=== PATIENT | female | born 1950 | race Caucasian/White ===

== ENCOUNTER 2017-04-16 13:25 | Emergency (ER) | payer OTHER ==
--- NOTE | 2017-04-16 14:44 | ED ORDER SUMMARY ---
..... Patient: CHAPIS GUZMAN OrderSheet [facility] VisitID: [id number] [address] [place] [address] 66y, F Registration Date/Time: 04/16/2017 ORDER SHEET Weight: 72.5 kg (stated) Allergies: Cashews, Benazepril, Codeine GENERAL ORDERS: Pulse oximeter (13:33 04/16/2017 EKoroleva P.A.-C) (13:36 LSullivan R.N.) Vitals (14:37 04/16/2017 EKoroleva P.A.-C) (14:42 omanelli R.N.) MEDICATION ORDERS: DuoNeb Neb Tx 1 unit dose (NOW) (13:33 04/16/2017 EKoroleva P.A.-C) (13:41 KEpting) IV FLUIDS: Epinephrine IV 0.1 mg (HIGH ALERT MEDICATION, NOW) (13:29 04/16/2017 EKoroleva P.A.-C) (13:33 JSimbeck R.N.) Solu-MEDROL IV 125 mg (NOW) (13:29 04/16/2017 EKoroleva P.A.-C) (13:34 JSimbeck R.N.) IV NS : initial bolus 1000 mL (1000 mL/hr), then 1000 mL/hr for X1 (NOW); Ken (13:29 04/16/2017 EKoroleva P.A.-C) (13:45 JSimbeck R.N.) Zofran IV 4 mg (NOW) (13:29 04/16/2017 EKoroleva P.A.-C) (13:58 JSimbeck R.N.) Benadryl IV 50 mg (NOW) (13:29 04/16/2017 EKoroleva P.A.-C) (13:44 JSimbeck R.N.) Pepcid IV 40 mg/50mL (NOW) (13:33 04/16/2017 EKoroleva P.A.-C) (13:45 JSimbeck R.N.) ORDER SHEET NOTES: [Electronically signed by Nanette PickettA.-C (16:13 04/16/2017)] [Electronically signed by Kasie Xie R.N. (16:18 04/16/2017)] [Electronically locked/signed by Kasie Xie R.N. (16:18 04/16/2017)]
--- NOTE | 2017-04-16 14:44 | ED CLINICAL REPORT ---
Clinical Report - Physicians/Mid Levels [facility] [address] [place] [address] 04/16/2017 13:27 Patient: CHAPIS GUZMAN Time Seen: 13:34 Daniel 14 2016. Arrived- By private vehicle. Historian- patient. HISTORY OF PRESENT ILLNESS Chief Complaint: ALLERGIC REACTION, SKIN RASH, ITCHING and "HIVES". FACIAL SWELLING and THROAT SWELLING. This started just prior to arrival 10 minutes and is still present. (patient was eating leftover food, not chosen some burger, and then had a Kiwi, when she started her symptoms of not feeling well, pruritic sensations to her body, as well as a sore throat. Patient walked to the emergency department with a coworker. Denies prior history of similar allergies to kiwis, however she has not had one in a very long time, previous allergic reactions to cashew No other new medications or changes or exposures known to patient. Denies recent illness.). REVIEW OF SYSTEMS No eye problems, sore throat, chills, joint pain or weakness. No numbness, abdominal pain, vomiting or urinary frequency. She has had a cough. All systems otherwise negative, except as recorded above. SOCIAL HISTORY Alcohol use; consumes wine. ADDITIONAL NOTES The nursing notes have been reviewed. PHYSICAL EXAM Vital Signs: 04/16/2017 13:20 BP: 149/71. HR: 77. RR: 22. O2 saturation: 100%. Pain level now: 0/10. Eyes: Pupils equal, round and reactive to light. ENT: Ears normal. Pharynx normal. Voice normal. Neck: Neck supple. No lymphadenopathy. CVS: Normal heart rate and rhythm. Heart sounds normal. Respiratory: No respiratory distress. Breath sounds normal. No accessory muscle use or rales. Abdomen: Nontender. Skin: Skin warm. Skin: Normal skin color. Skin rash (pink fine swelling at torso/ ue). Neuro: Oriented X 3. PROGRESS AND PROCEDURES Course of Care: Patient with good O2 sat here, rash improving. Patient needs to have a hoarse voice. Lungs clear. No further workup. patient with no new medications, on the recent exposure was a cystic new daily. Patient given EpiPen for home. Patient stable. No new shortness of breath. 04/16/2017 14:39 BP: 137/64. HR: 78. RR: 16. O2 saturation: 97%. Temp: 98.1 F. Patient is stable. Symptoms better. Patient/family counseled. Disposition: Discharged. CLINICAL IMPRESSION Allergic reaction secondary to food. INSTRUCTIONS (avoid KIWIs). Warnings: Further evaluation is necessary. Prescription Medications: EpiPen Auto-Injector 0.3mg / unit: inject 1 unit dose as directed as needed for allergic reaction. Dispense one (1) two-mohamud. No refills. Substitution is permissible. Follow-up: Follow up with your doctor in five days as needed. (Electronically signed by Nanette Pickett P.A.-C 04/16/2017 16:13)
--- NOTE | 2017-04-16 14:44 | ED ORDER SUMMARY ---
..... Patient: CHAPIS GUZMAN OrderSheet [facility] VisitID: [id number] [address] [place] [address] 66y, F Registration Date/Time: 04/16/2017 ORDER SHEET Weight: 72.5 kg (stated) Allergies: Cashews, Benazepril, Codeine GENERAL ORDERS: Pulse oximeter (13:33 04/16/2017 EKoroleva P.A.-C) (13:36 LSullivan R.N.) Vitals (14:37 04/16/2017 EKoroleva P.A.-C) (14:42 omanelli R.N.) MEDICATION ORDERS: DuoNeb Neb Tx 1 unit dose (NOW) (13:33 04/16/2017 EKoroleva P.A.-C) (13:41 KEpting) IV FLUIDS: Epinephrine IV 0.1 mg (HIGH ALERT MEDICATION, NOW) (13:29 04/16/2017 EKoroleva P.A.-C) (13:33 JSimbeck R.N.) Solu-MEDROL IV 125 mg (NOW) (13:29 04/16/2017 EKoroleva P.A.-C) (13:34 JSimbeck R.N.) IV NS : initial bolus 1000 mL (1000 mL/hr), then 1000 mL/hr for X1 (NOW); Ken (13:29 04/16/2017 EKoroleva P.A.-C) (13:45 JSimbeck R.N.) Zofran IV 4 mg (NOW) (13:29 04/16/2017 EKoroleva P.A.-C) (13:58 JSimbeck R.N.) Benadryl IV 50 mg (NOW) (13:29 04/16/2017 EKoroleva P.A.-C) (13:44 JSimbeck R.N.) Pepcid IV 40 mg/50mL (NOW) (13:33 04/16/2017 EKoroleva P.A.-C) (13:45 JSimbeck R.N.) ORDER SHEET NOTES: [Electronically signed by Nanette PickettA.-C (16:13 04/16/2017)] [Electronically signed by Kasie Xie R.N. (16:18 04/16/2017)] [Electronically locked/signed by Kasie Xie R.N. (16:18 04/16/2017)]
--- NOTE | 2017-04-16 14:44 | ED CLINICAL REPORT ---
Clinical Report - Physicians/Mid Levels [facility] [address] [place] [address] 04/16/2017 13:27 Patient: CHAPIS GUZMAN Time Seen: 13:34 Daniel 14 2016. Arrived- By private vehicle. Historian- patient. HISTORY OF PRESENT ILLNESS Chief Complaint: ALLERGIC REACTION, SKIN RASH, ITCHING and "HIVES". FACIAL SWELLING and THROAT SWELLING. This started just prior to arrival 10 minutes and is still present. (patient was eating leftover food, not chosen some burger, and then had a Kiwi, when she started her symptoms of not feeling well, pruritic sensations to her body, as well as a sore throat. Patient walked to the emergency department with a coworker. Denies prior history of similar allergies to kiwis, however she has not had one in a very long time, previous allergic reactions to cashew No other new medications or changes or exposures known to patient. Denies recent illness.). REVIEW OF SYSTEMS No eye problems, sore throat, chills, joint pain or weakness. No numbness, abdominal pain, vomiting or urinary frequency. She has had a cough. All systems otherwise negative, except as recorded above. SOCIAL HISTORY Alcohol use; consumes wine. ADDITIONAL NOTES The nursing notes have been reviewed. PHYSICAL EXAM Vital Signs: 04/16/2017 13:20 BP: 149/71. HR: 77. RR: 22. O2 saturation: 100%. Pain level now: 0/10. Eyes: Pupils equal, round and reactive to light. ENT: Ears normal. Pharynx normal. Voice normal. Neck: Neck supple. No lymphadenopathy. CVS: Normal heart rate and rhythm. Heart sounds normal. Respiratory: No respiratory distress. Breath sounds normal. No accessory muscle use or rales. Abdomen: Nontender. Skin: Skin warm. Skin: Normal skin color. Skin rash (pink fine swelling at torso/ ue). Neuro: Oriented X 3. PROGRESS AND PROCEDURES Course of Care: Patient with good O2 sat here, rash improving. Patient needs to have a hoarse voice. Lungs clear. No further workup. patient with no new medications, on the recent exposure was a cystic new daily. Patient given EpiPen for home. Patient stable. No new shortness of breath. 04/16/2017 14:39 BP: 137/64. HR: 78. RR: 16. O2 saturation: 97%. Temp: 98.1 F. Patient is stable. Symptoms better. Patient/family counseled. Disposition: Discharged. CLINICAL IMPRESSION Allergic reaction secondary to food. INSTRUCTIONS (avoid KIWIs). Warnings: Further evaluation is necessary. Prescription Medications: EpiPen Auto-Injector 0.3mg / unit: inject 1 unit dose as directed as needed for allergic reaction. Dispense one (1) two-mohamud. No refills. Substitution is permissible. Follow-up: Follow up with your doctor in five days as needed. (Electronically signed by Nanette Pickett P.A.-C 04/16/2017 16:13)
--- NOTE | 2017-04-16 14:44 | ED NURSING NOTES ---
Clinical Report - Nurses [facility] [address] [place] [address] 04/16/2017 13:27 Patient: CHAPIS GUZMAN TRIAGE Triage time 1320. Acuity: LEVEL 2. Chief Complaint: ALLERGIC REACTION and DIFFICULTY BREATHING . lost her voice. Alert. --13:36 Kasie Xie R.N. 13:20 04/16/17. BP: 149/71. HR: 77. RR: 22. O2 saturation: 100%. Pain level now: 0/10. Additional comments: on neb tx. --13:36 Kasie Xie R.N. Weight: 72.5 kg stated. Height/Length: 62 inches Per Patient. BMI: 29.3. --13:29 Kasie Xie R.N. Medications Flonase 50 mcg, 2 sprays daily. --13:37 Kasie Xie R.N. NIFEdipine ER Oral 90 mg, daily. --13:37 Kasie Xie R.N. Omeprazole Oral 20 mg, daily. --13:38 Kasie Xie R.N. Simvastatin Oral 40 mg, at bedtime. --13:38 Kasie Xie R.N. Spironolactone Oral with HCTZ 25mg/25mg, daily. --13:39 Kasie Xie R.N. Potassium Chloride ER Oral (Tablet Extended Release 20 meq) 30 meq, daily. --13:39 Kasie Xie R.N. Propranool 20 mg BID. --13:41 Kasie Xie R.N. Calcium Carbonate-Vit D-Min Oral. --13:42 Kasie Xie R.N. Aspirin Oral (Tablet 325 mg) 1 tablet, daily. --13:42 Kasie Xie R.N. Vitamin c. --13:43 Kasie Xie R.N. Allergies Cashews. --13:32 Kasie Xie R.N. Benazepril. --13:32 Kasie Xie R.N. Codeine. --13:32 Kasie Xie R.N. History Arrived by private vehicle. Historian: patient. Primary physician ([facility] at [facility]). ( Pt consumed kiwi and nachos, brought from home, and then couldn't talk). This started just prior to arrival. Treatment BENCH WORKER APPRENTICE: None. SOCIAL HX: Smoker- current status unknown. Alcohol use; consumes wine occasionally. No drug use. FALL RISK ASSESSMENT: Fall risk assessment completed. No fall risk identified. --13:36 Kasie Xie R.N. PROBLEMS: Hypertension. Brain aneurysm with stent. --13:34 Kasie Xie R.N. ADDITIONAL SURGERIES: Brain surgery. Foot surgery. Shoulder Surgery. --13:34 Kasie Xie R.N. Interventions ID band on patient. To room. --13:36 Kasie Xie R.N. PHYSICAL ASSESSMENT 13:20. GENERAL / NEURO / PSYCH: Appears anxious and in distress. (unable to speak sentences, can speak 1 or 2 words). --13:44 Kasie iXe R.N. NURSING PROGRESS NOTES 13:27 04/16/2017 Site #1 started via IV in the right antecubital space with an 20g angiocath, with aseptic technique and good blood return; one attempt. Blood drawn: rainbow set. Labeled in the presence of the patient and sent to the lab (by EDITH Ferro). --13:33 Gavin Prater R.N. 13:28 04/16/2017 Epinephrine (EPINEPHrine HCl) IVP 0.1 mg given over 1 minute(s) via site #1. Allergies verified and confirmed 5 rights. IV patency established. IV site checked: no pain, redness, or swelling. IV flushed thoroughly pre- and post-medication administration. IVP given by RN. --13:33 Gavin Prater R.N. 13:28 04/16/2017 SOLU-MEDROL (MethylPREDNISolone Sodium Succ) IVP 125 mg given over 2 minute(s) via site #1. Allergies verified and confirmed 5 rights. IV patency established. IV site checked: no pain, redness, or swelling. IV flushed thoroughly pre- and post-medication administration. IVP given by RN. --13:34 Gavin Prater R.N. 13:40 04/16/2017 Benadryl (DiphenhydrAMINE HCl) IVP 50 mg given over 2 minute(s) via site #1. Allergies verified, confirmed 5 rights and sedative warning given to the patient. IV patency established. IV site checked: no pain, redness, or swelling. IV flushed thoroughly pre- and post-medication administration. IVP given by RN. --13:44 Gavin Prater R.N. 13:40 04/16/2017 Started bag #1 1000 mL IV Fluids IV NS (Saline); bolus of 1000 mL over 1 minute(s) via site #1 via IV pump. Allergies verified and confirmed 5 rights. IV patency established. IV site checked: no pain, redness, or swelling. IV flushed thoroughly pre- and post-medication administration. --13:45 Gavin Prater R.N. 13:41 04/16/2017 Duoneb (Ipratropium-Albuterol) Neb TX 1 unit dose given. --13:41 Lisa Beckwith 13:21. Patient identifiers checked. Call light placed in reach. Bed placed in lowest position. Patient ready for evaluation- chart flagged. --13:44 Kasie Xie R.N. 13:22. classroom monitor, pulse oximeter and NIBP monitor placed on patient; monitor technician- Lead II and V1; monitor alarms on. --13:45 Kasie Xie R.N. 13:42 04/16/2017 Pepcid IVP 40 mg given over 15 minute(s) via site #1. Allergies verified and confirmed 5 rights. IV patency established. IV site checked: no pain, redness, or swelling. IV flushed thoroughly pre- and post-medication administration. IVP given by RN. --13:45 Gavin Prater R.N. 13:57 04/16/2017 Zofran (Ondansetron HCl) IVP 4 mg given over 1 minute(s) via site #1. Allergies verified and confirmed 5 rights. IV patency established. IV site checked: no pain, redness, or swelling. IV flushed thoroughly pre- and post-medication administration. IVP given by RN. --13:58 Gavin Prater R.N. 14:34 04/16/17. BP: 143/63. HR: 75 (regular and normal rate). RR: 18. O2 saturation: 97% on nasal cannula at 2 liters/minute. Pain level now: 0/10. --14:38 Tam Mart R.N. DISPOSITION / DISCHARGE 14:39 04/16/17. BP: 137/64. HR: 78. RR: 16. O2 saturation: 97%. Temp: 98.1 F. --14:40 Linnea Adames, [place] [id number] Departure time: 1459. Condition at departure: improved. No learning barriers present. Discharge instructions provided and reviewed with the patient. Reviewed medication(s) information. Prescription(s) given to the patient. Reviewed referral to family practice. Verbalized understanding. Written instructions provided. The patient was discharged home and accompanied by electrical engineering draftsperson. She left the Emergency Department ambulatory and via private vehicle. --16:16 Kasie Xie R.N. 14:59 04/16/17. BP: 149/66. HR: 77. RR: 18. O2 saturation: 98%. Pain level now: 0/10. --16:16 Kasie Xie R.N. Locked/Released at 04/16/2017 16:18 by Kasie Xie R.N.
--- NOTE | 2017-04-16 14:44 | ED NURSING NOTES ---
Clinical Report - Nurses [facility] [address] [place] [address] 04/16/2017 13:27 Patient: CHAPIS GUZMAN TRIAGE Triage time 1320. Acuity: LEVEL 2. Chief Complaint: ALLERGIC REACTION and DIFFICULTY BREATHING . lost her voice. Alert. --13:36 Kasie Xie R.N. 13:20 04/16/17. BP: 149/71. HR: 77. RR: 22. O2 saturation: 100%. Pain level now: 0/10. Additional comments: on neb tx. --13:36 Kasie Xie R.N. Weight: 72.5 kg stated. Height/Length: 62 inches Per Patient. BMI: 29.3. --13:29 Kasie Xie R.N. Medications Flonase 50 mcg, 2 sprays daily. --13:37 Kasie Xie R.N. NIFEdipine ER Oral 90 mg, daily. --13:37 Kasie Xie R.N. Omeprazole Oral 20 mg, daily. --13:38 Kasie Xie R.N. Simvastatin Oral 40 mg, at bedtime. --13:38 Kasie Xie R.N. Spironolactone Oral with HCTZ 25mg/25mg, daily. --13:39 Kasie Xie R.N. Potassium Chloride ER Oral (Tablet Extended Release 20 meq) 30 meq, daily. --13:39 Kasie Xie R.N. Propranool 20 mg BID. --13:41 Kasie Xie R.N. Calcium Carbonate-Vit D-Min Oral. --13:42 Kasie Xie R.N. Aspirin Oral (Tablet 325 mg) 1 tablet, daily. --13:42 Kasie Xie R.N. Vitamin c. --13:43 Kasie Xie R.N. Allergies Cashews. --13:32 Kasie Xie R.N. Benazepril. --13:32 Kasie Xie R.N. Codeine. --13:32 Kasie Xie R.N. History Arrived by private vehicle. Historian: patient. Primary physician ([facility] at [facility]). ( Pt consumed kiwi and nachos, brought from home, and then couldn't talk). This started just prior to arrival. Treatment WASTEWATER PLANT OPERATOR: None. SOCIAL HX: Smoker- current status unknown. Alcohol use; consumes wine occasionally. No drug use. FALL RISK ASSESSMENT: Fall risk assessment completed. No fall risk identified. --13:36 Kasie Xie R.N. PROBLEMS: Hypertension. Brain aneurysm with stent. --13:34 Kasie Xie R.N. ADDITIONAL SURGERIES: Brain surgery. Foot surgery. Shoulder Surgery. --13:34 Kasie Xie R.N. Interventions ID band on patient. To room. --13:36 Kasie Xie R.N. PHYSICAL ASSESSMENT 13:20. GENERAL / NEURO / PSYCH: Appears anxious and in distress. (unable to speak sentences, can speak 1 or 2 words). --13:44 Kasie Xie R.N. NURSING PROGRESS NOTES 13:27 04/16/2017 Site #1 started via IV in the right antecubital space with an 20g angiocath, with aseptic technique and good blood return; one attempt. Blood drawn: rainbow set. Labeled in the presence of the patient and sent to the lab (by EDITH Ferro). --13:33 Gavin Prater R.N. 13:28 04/16/2017 Epinephrine (EPINEPHrine HCl) IVP 0.1 mg given over 1 minute(s) via site #1. Allergies verified and confirmed 5 rights. IV patency established. IV site checked: no pain, redness, or swelling. IV flushed thoroughly pre- and post-medication administration. IVP given by RN. --13:33 Gavin Prater R.N. 13:28 04/16/2017 SOLU-MEDROL (MethylPREDNISolone Sodium Succ) IVP 125 mg given over 2 minute(s) via site #1. Allergies verified and confirmed 5 rights. IV patency established. IV site checked: no pain, redness, or swelling. IV flushed thoroughly pre- and post-medication administration. IVP given by RN. --13:34 Gavin Prater R.N. 13:40 04/16/2017 Benadryl (DiphenhydrAMINE HCl) IVP 50 mg given over 2 minute(s) via site #1. Allergies verified, confirmed 5 rights and sedative warning given to the patient. IV patency established. IV site checked: no pain, redness, or swelling. IV flushed thoroughly pre- and post-medication administration. IVP given by RN. --13:44 Gavin Prater R.N. 13:40 04/16/2017 Started bag #1 1000 mL IV Fluids IV NS (Saline); bolus of 1000 mL over 1 minute(s) via site #1 via IV pump. Allergies verified and confirmed 5 rights. IV patency established. IV site checked: no pain, redness, or swelling. IV flushed thoroughly pre- and post-medication administration. --13:45 Gavin Prater R.N. 13:41 04/16/2017 Duoneb (Ipratropium-Albuterol) Neb TX 1 unit dose given. --13:41 Lisa Beckwith 13:21. Patient identifiers checked. Call light placed in reach. Bed placed in lowest position. Patient ready for evaluation- chart flagged. --13:44 Kasie Xie R.N. 13:22. gambling monitor, pulse oximeter and NIBP monitor placed on patient; vehicle monitor technician- Lead II and V1; monitor alarms on. --13:45 Kasie Xie R.N. 13:42 04/16/2017 Pepcid IVP 40 mg given over 15 minute(s) via site #1. Allergies verified and confirmed 5 rights. IV patency established. IV site checked: no pain, redness, or swelling. IV flushed thoroughly pre- and post-medication administration. IVP given by RN. --13:45 Gavin Prater R.N. 13:57 04/16/2017 Zofran (Ondansetron HCl) IVP 4 mg given over 1 minute(s) via site #1. Allergies verified and confirmed 5 rights. IV patency established. IV site checked: no pain, redness, or swelling. IV flushed thoroughly pre- and post-medication administration. IVP given by RN. --13:58 Gavin Prater R.N. 14:34 04/16/17. BP: 143/63. HR: 75 (regular and normal rate). RR: 18. O2 saturation: 97% on nasal cannula at 2 liters/minute. Pain level now: 0/10. --14:38 Tam Mart R.N. DISPOSITION / DISCHARGE 14:39 04/16/17. BP: 137/64. HR: 78. RR: 16. O2 saturation: 97%. Temp: 98.1 F. --14:40 Linnea Adames, [place] [address] Departure time: 1459. Condition at departure: improved. No learning barriers present. Discharge instructions provided and reviewed with the patient. Reviewed medication(s) information. Prescription(s) given to the patient. Reviewed referral to family practice. Verbalized understanding. Written instructions provided. The patient was discharged home and accompanied by paper reeler. She left the Emergency Department ambulatory and via private vehicle. --16:16 Kasie Xie R.N. 14:59 04/16/17. BP: 149/66. HR: 77. RR: 18. O2 saturation: 98%. Pain level now: 0/10. --16:16 Kasie Xie R.N. Locked/Released at 04/16/2017 16:18 by Kasie Xie R.N.
--- NOTE | 2017-04-16 16:18 | ED DISCHARGE INSTRUCTIONS ---
Patient: CHAPIS GUZMAN General Instructions [facility] VisitID: [id number] [place] [address] 66y, F Registration Date/Time: 04/16/2017 Allergic reaction secondary to food. INSTRUCTIONS (avoid KIWIs). Warnings: Further evaluation is necessary. Prescription Medications: EpiPen Auto-Injector 0.3mg / unit: inject 1 unit dose as directed as needed for allergic reaction. Dispense one (1) two-omhamud. No refills. Substitution is permissible. Follow-up: Follow up with your doctor in five days as needed. ADDITIONAL INFORMATION Allergic Reaction,Generalized [Other] You are having an allergic reaction. This may cause an itchy rash, dizziness, fainting, trouble breathing or swallowing, and swelling of the face or other parts of the body. This can be caused by exposure to something in your surroundings that you have become sensitive to. This could be due to medicine or food. This could also be due to something you put on your skin or in your hair or something in the air. Often it is not possible to find out exactly what has caused your reaction. The goal of today's treatment is to relieve symptoms. The rash will usually fade over several days, but can sometimes last up to two weeks. Home Care: 1) If you know what you are allergic to, avoid it because future reactions could be worse than this one. 2) Avoid tight clothing and anything that heats up your skin (hot showers/baths, direct sunlight) since heat will make itching worse. 3) An ice pack will relieve local areas of intense itching and redness. Lanacaine cream or Solarcaine spray (or other product containing "benzocaine", available without a prescription) will reduce the itching. 4) Oral Benadryl (diphenhydramine) is an antihistamine available at drug and grocery stores. Unless a prescription antihistamine was given, Benadryl may be used to reduce itching if large areas of the skin are involved. Use lower doses during the daytime and higher doses at bedtime since the drug may make you sleepy. [NOTE: Do not use Benadryl if you have glaucoma or if you are a man with trouble urinating due to an enlarged prostate.] Claritin (loratidine) is an antihistamine that causes less drowsiness and is a good alternative for daytime use. Follow Up Follow Up with your doctor or this facility in two days if your symptoms do not continue to improve. If you had a severe reaction today, or if you have had several mild-moderate allergic reactions in the past, ask your doctor about allergy testing to find out what you are allergic to. If your reaction included dizziness, fainting or trouble breathing or swallowing, ask your doctor about carrying an Allergy Kit (injectable epinephrine) for home use. Get Prompt Medical Attention if any of the following occur: -- Trouble breathing or swallowing -- New or worse swelling in the face, eyelids, lips, mouth, tongue or throat -- Dizziness, weakness or fainting You have been given the following additional information: Allergic Reaction, Other (General) (Electronically signed by Nanette Pickett P.A.-C 04/16/2017 16:13)
--- NOTE | 2017-04-16 16:18 | ED MED RECONCILIATION SUMMARY ---
Patient: CHAPIS GUZMAN Medication Reconciliation Report [facility] VisitID: [id number] [address] [place] [address] 66y, F Registration Date/Time: 04/16/2017 Weight: 72.5 kg Height/Length: 62 in. BMI: 29.3 ALLERGIES: Benazepril, Cashews, Codeine The patient's Home Medications are listed below: THE FOLLOWING MEDICATIONS NEED TO BE RECONCILED: Aspirin Oral (325 mg) 1 tablet, daily Calcium Carbonate-Vit D-Min Oral Flonase 50 mcg, 2 sprays daily NIFEdipine ER Oral 90 mg, daily Omeprazole Oral 20 mg, daily Potassium Chloride ER Oral (20 meq) 30 meq, daily Propranool 20 mg BID Simvastatin Oral 40 mg, at bedtime Spironolactone Oral with HCTZ 25mg/25mg, daily Vitamin c The source(s) of the original Home Medication information: Not obtained. The following Medications were given to the patient in the Emergency Department: Epinephrine [IVP] IVP 0.1 mg, administered: 04/16/2017 1:28:00 PM SOLU-MEDROL [IVP] IVP 125 mg, administered: 04/16/2017 1:28:00 PM Duoneb [Neb Tx] Neb TX 1 unit dose, administered: 04/16/2017 1:41:00 PM Benadryl [IVP] IVP 50 mg, administered: 04/16/2017 1:40:00 PM Pepcid [IVP] IVP 40 mg, administered: 04/16/2017 1:42:00 PM IV NS IV Fluids bolus 1000 mL over 1 minute(s), administered: 04/16/2017 1:40:00 PM Zofran [IVP] IVP 4 mg, administered: 04/16/2017 1:57:00 PM The following Medications were prescribed to the patient: EpiPen Auto-Injector 0.3mg / unit: inject 1 unit dose as directed as needed for allergic reaction. Dispense one (1) two-mohamud. No refills. Substitution is permissible. -- Nanette Pickett, PToniARodneyC
--- NOTE | 2017-04-16 16:18 | ED MAR SUMMARY ---
..... Medication Administration Record [facility] [address] [place] [address] Patient: CHAPIS GUZMAN Visit ID: [id number] 66y, F Weight: 72.5 kg Height/Length: 62 in BMI: 29.3 ALLERGIES: Codeine, Benazepril, Cashews Given 13:04/16/2017 Gavin Prater R.N. Medication Administered: EPINEPHRINE [IVP] (EPINEPHRINE HCL), Dose: 0.1 mg IVP over 1 minute(s), Site: #1 right AC. Medication Ordered: Epinephrine IV 0.1 mg (HIGH ALERT MEDICATION, NOW). Given 13:04/16/2017 Gavin Prater R.N. Medication Administered: SOLU-MEDROL [IVP] (METHYLPREDNISOLONE SODIUM SUCC), Dose: 125 mg IVP over 2 minute(s), Site: #1 right AC. Medication Ordered: Solu-MEDROL IV 125 mg (NOW). Start 13:04/16/2017 Gavin Prater R.N. Medication Administered: IV NS (SALINE), Dose: IV Fluids, Bolus: 1000 mL over 1 minute(s), Dispensed: 1000 mL bag, Site: #1 right AC. Medication Ordered: IV NS : initial bolus 1000 mL (1000 mL/hr), then 1000 mL/hr for X1 (NOW); Ken. Given 13:04/16/2017 Gavin Prater R.N. Medication Administered: BENADRYL [IVP] (DIPHENHYDRAMINE HCL), Dose: 50 mg IVP over 2 minute(s), Site: #1 right AC. Medication Ordered: Benadryl IV 50 mg (NOW). Given 13:41 04/16/2017 Lisa Beckwith, Medication Administered: DUONEB [NEB TX] (IPRATROPIUM-ALBUTEROL), Dose: 1 unit dose Neb TX. Medication Ordered: DuoNeb Neb Tx 1 unit dose (NOW). Given 13:42 04/16/2017 Gavin Prater R.N. Medication Administered: PEPCID [IVP], Dose: 40 mg IVP over 15 minute(s), Site: #1 right AC. Medication Ordered: Pepcid IV 40 mg/50mL (NOW). Given 13:57 04/16/2017 Gavin Prater R.N. Medication Administered: ZOFRAN [IVP] (ONDANSETRON HCL), Dose: 4 mg IVP over 1 minute(s), Site: #1 right AC. Medication Ordered: Zofran IV 4 mg (NOW).
--- NOTE | 2017-04-16 16:18 | ED MAR SUMMARY ---
..... Medication Administration Record [facility] [address] [place] [place] [address] Patient: CHAPIS GUZMAN Visit ID: [id number] 66y, F Weight: 72.5 kg Height/Length: 62 in BMI: 29.3 ALLERGIES: Codeine, Benazepril, Cashews Given 13:04/16/2017 Gavin Prater R.N. Medication Administered: EPINEPHRINE [IVP] (EPINEPHRINE HCL), Dose: 0.1 mg IVP over 1 minute(s), Site: #1 right AC. Medication Ordered: Epinephrine IV 0.1 mg (HIGH ALERT MEDICATION, NOW). Given 13:04/16/2017 Gavin Prater R.N. Medication Administered: SOLU-MEDROL [IVP] (METHYLPREDNISOLONE SODIUM SUCC), Dose: 125 mg IVP over 2 minute(s), Site: #1 right AC. Medication Ordered: Solu-MEDROL IV 125 mg (NOW). Start 13:04/16/2017 Gavin Prater R.N. Medication Administered: IV NS (SALINE), Dose: IV Fluids, Bolus: 1000 mL over 1 minute(s), Dispensed: 1000 mL bag, Site: #1 right AC. Medication Ordered: IV NS : initial bolus 1000 mL (1000 mL/hr), then 1000 mL/hr for X1 (NOW); Ken. Given 13:04/16/2017 Gavin Prater R.N. Medication Administered: BENADRYL [IVP] (DIPHENHYDRAMINE HCL), Dose: 50 mg IVP over 2 minute(s), Site: #1 right AC. Medication Ordered: Benadryl IV 50 mg (NOW). Given 13:41 04/16/2017 Lisa Beckwith, Medication Administered: DUONEB [NEB TX] (IPRATROPIUM-ALBUTEROL), Dose: 1 unit dose Neb TX. Medication Ordered: DuoNeb Neb Tx 1 unit dose (NOW). Given 13:42 04/16/2017 Gavin Prater R.N. Medication Administered: PEPCID [IVP], Dose: 40 mg IVP over 15 minute(s), Site: #1 right AC. Medication Ordered: Pepcid IV 40 mg/50mL (NOW). Given 13:57 04/16/2017 Gavin Prater R.N. Medication Administered: ZOFRAN [IVP] (ONDANSETRON HCL), Dose: 4 mg IVP over 1 minute(s), Site: #1 right AC. Medication Ordered: Zofran IV 4 mg (NOW).
--- NOTE | 2017-04-16 16:18 | ED DISCHARGE INSTRUCTIONS ---
Patient: CHAPIS GUZMAN General Instructions [facility] VisitID: [id number] [place] [address] 66y, F Registration Date/Time: 04/16/2017 Allergic reaction secondary to food. INSTRUCTIONS (avoid KIWIs). Warnings: Further evaluation is necessary. Prescription Medications: EpiPen Auto-Injector 0.3mg / unit: inject 1 unit dose as directed as needed for allergic reaction. Dispense one (1) two-mohamud. No refills. Substitution is permissible. Follow-up: Follow up with your doctor in five days as needed. ADDITIONAL INFORMATION Allergic Reaction,Generalized [Other] You are having an allergic reaction. This may cause an itchy rash, dizziness, fainting, trouble breathing or swallowing, and swelling of the face or other parts of the body. This can be caused by exposure to something in your surroundings that you have become sensitive to. This could be due to medicine or food. This could also be due to something you put on your skin or in your hair or something in the air. Often it is not possible to find out exactly what has caused your reaction. The goal of today's treatment is to relieve symptoms. The rash will usually fade over several days, but can sometimes last up to two weeks. Home Care: 1) If you know what you are allergic to, avoid it because future reactions could be worse than this one. 2) Avoid tight clothing and anything that heats up your skin (hot showers/baths, direct sunlight) since heat will make itching worse. 3) An ice pack will relieve local areas of intense itching and redness. Lanacaine cream or Solarcaine spray (or other product containing "benzocaine", available without a prescription) will reduce the itching. 4) Oral Benadryl (diphenhydramine) is an antihistamine available at drug and grocery stores. Unless a prescription antihistamine was given, Benadryl may be used to reduce itching if large areas of the skin are involved. Use lower doses during the daytime and higher doses at bedtime since the drug may make you sleepy. [NOTE: Do not use Benadryl if you have glaucoma or if you are a man with trouble urinating due to an enlarged prostate.] Claritin (loratidine) is an antihistamine that causes less drowsiness and is a good alternative for daytime use. Follow Up Follow Up with your doctor or this facility in two days if your symptoms do not continue to improve. If you had a severe reaction today, or if you have had several mild-moderate allergic reactions in the past, ask your doctor about allergy testing to find out what you are allergic to. If your reaction included dizziness, fainting or trouble breathing or swallowing, ask your doctor about carrying an Allergy Kit (injectable epinephrine) for home use. Get Prompt Medical Attention if any of the following occur: -- Trouble breathing or swallowing -- New or worse swelling in the face, eyelids, lips, mouth, tongue or throat -- Dizziness, weakness or fainting You have been given the following additional information: Allergic Reaction, Other (General) (Electronically signed by Nanette Pickett P.A.-C 04/16/2017 16:13)
--- NOTE | 2017-04-16 16:18 | ED MED RECONCILIATION SUMMARY ---
Patient: CHAPIS GUZMAN Medication Reconciliation Report [facility] VisitID: [id number] [address] [place] [address] 66y, F Registration Date/Time: 04/16/2017 Weight: 72.5 kg Height/Length: 62 in. BMI: 29.3 ALLERGIES: Benazepril, Cashews, Codeine The patient's Home Medications are listed below: THE FOLLOWING MEDICATIONS NEED TO BE RECONCILED: Aspirin Oral (325 mg) 1 tablet, daily Calcium Carbonate-Vit D-Min Oral Flonase 50 mcg, 2 sprays daily NIFEdipine ER Oral 90 mg, daily Omeprazole Oral 20 mg, daily Potassium Chloride ER Oral (20 meq) 30 meq, daily Propranool 20 mg BID Simvastatin Oral 40 mg, at bedtime Spironolactone Oral with HCTZ 25mg/25mg, daily Vitamin c The source(s) of the original Home Medication information: Not obtained. The following Medications were given to the patient in the Emergency Department: Epinephrine [IVP] IVP 0.1 mg, administered: 04/16/2017 1:28:00 PM SOLU-MEDROL [IVP] IVP 125 mg, administered: 04/16/2017 1:28:00 PM Duoneb [Neb Tx] Neb TX 1 unit dose, administered: 04/16/2017 1:41:00 PM Benadryl [IVP] IVP 50 mg, administered: 04/16/2017 1:40:00 PM Pepcid [IVP] IVP 40 mg, administered: 04/16/2017 1:42:00 PM IV NS IV Fluids bolus 1000 mL over 1 minute(s), administered: 04/16/2017 1:40:00 PM Zofran [IVP] IVP 4 mg, administered: 04/16/2017 1:57:00 PM The following Medications were prescribed to the patient: EpiPen Auto-Injector 0.3mg / unit: inject 1 unit dose as directed as needed for allergic reaction. Dispense one (1) two-mohamud. No refills. Substitution is permissible. -- Nanette Pickett, PToniARodneyC
== END 2017-04-16 14:59 | disposition home or self-care (01) ==
LOC: ED SRH 13:25
DX: T78.1XXA Other adverse food reactions, not elsewhere classified, initial encounter (principal); R22.0 Localized swelling, mass and lump, head; R22.1 Localized swelling, mass and lump, neck; L27.2 Dermatitis due to ingested food; X58.XXXA Exposure to other specified factors, initial encounter